=== PATIENT | female | born 1950 | race Caucasian/White ===

== ENCOUNTER → 2016-09-09 | Outpatient (CLI) | payer MEDICARE, OTHER ==
[~2016-09-09] MED LIST: ATIVAN 0.50.5 MG/TAB PO; B100 COMPLEX UL1 TA1 PO; B6-FOLIC ACID1 CAP PO; CALCIUM 600/VIT1 CAP PO; CALCIUM 6001 TA1 PO; CELEBREX50 MG PO; CENTRUM SILVER1 CTB PO; CEPHALEXIN500 M1 PO; CO Q-1010 M1; CURCUMIN95% PO; DELZICOL; DELZICOL PO; DUO-KAPS1 CAP PO; ELITE MAGNESIUM1 TAB PO; EPIPEN 2-PAK1 MG/ML IM; IBRANCE100 MG PO; IMODIUM 2MG CAPS2 MG PO; IMURAN 50MG TAB50 MG PO; IPRATROPIUM BROM3 M1 IH; KENALOG DENTAL P5 GM DT; L GLUTAMINE PO; LEVAQUIN 5500 MG/TA1 PO; LEXAPRO20 MG PO; MAGNESIUM100 MG PO; MELAT3MGTAB PO; MELATONIN5 M1 SL; MELATONIN5 MG PO; MICARDIS40 MG PO; MICARDIS80 MG PO; NORCO 325 MG-51 TAB PO; PREDNISONE 5MG5 MG PO; PREDNISONE20 MG PO; PRILOSEC 20MG20 MG PO; RITE AID NATU200 MCG PO; ROXANOL 20MG20 MG/ML PO; SELENIUM200 MC5 PO; SENOKOT S 50 MG1 TAB PO; SINEQUAN 1010 MG/CAP PO; TESSALON PERLE200 MG PO; TYLENOL 325MG325 MG PO; VITAMIN D 50,1.25 MG PO; VITAMINC1000TA PO; VITAMIND3 5000 PO; VYTORIN 10 MG-21 TAB PO; XELODA500 MG PO; ZOFRAN 4MG T4 MG/TAB PO; ZOFRAN ODT4 MG PO; ZOVIRAX 200MG200 MG PO; [UNRECOGNIZED DRUG - OTHER] PO; [UNRECOGNIZED DRUG - OTHER] PO; [UNRECOGNIZED DRUG - OTHER] PO; [UNRECOGNIZED DRUG - OTHER] PO; [UNRECOGNIZED DRUG - OTHER] PO; [UNRECOGNIZED DRUG - OTHER] PO; [UNRECOGNIZED DRUG - REMARK]
== END ==
LOC: COL.RAD 09:27
DX: R18.8 Other ascites (principal); C78.7 Secondary malignant neoplasm of liver and intrahepatic bile duct

== ENCOUNTER → 2016-09-21 | Outpatient (CLI) | payer MEDICARE, OTHER ==
[~2016-09-21] VITALS: Ht 170.2 cm; Wt 71.8 kg
[2016-09-21 12:20] VITALS: BP 135/88; PULSE 80
[2016-09-21 13:37] VITALS: BP 135/81; PULSE 81
[2016-09-21 13:52] VITALS: BP 129/85; PULSE 74
== END ==
LOC: COL.RAD 11:57
DX: C50.812 Malignant neoplasm of overlapping sites of left female breast (principal); C78.7 Secondary malignant neoplasm of liver and intrahepatic bile duct; R14.0 Abdominal distension (gaseous)

== ENCOUNTER → 2016-09-29 | Outpatient (CLI) | payer MEDICARE, OTHER | LOC: COL.RAD 07:30 | DX: C50.812 Malignant neoplasm of overlapping sites of left female breast (principal); C79.31 Secondary malignant neoplasm of brain; I10 Essential (primary) hypertension; M89.9 Disorder of bone, unspecified ==

== ENCOUNTER 2016-10-02 13:27 | Emergency (ER) | payer MEDICARE, OTHER ==
[~2016-10-02] VITALS: Ht 170.2 cm; Wt 71.8 kg
[~2016-10-02 13:27] MED LIST changes: -ATIVAN 0.50.5 MG/TAB PO; -CENTRUM SILVER1 CTB PO; -DELZICOL PO; -IBRANCE100 MG PO; -IPRATROPIUM BROM3 M1 IH; -LEVAQUIN 5500 MG/TA1 PO; -ROXANOL 20MG20 MG/ML PO; -SENOKOT S 50 MG1 TAB PO; -ZOFRAN ODT4 MG PO
[2016-10-02 13:29] VITALS: TEMP 98.4
[2016-10-02 14:36] LABS: ARTERIAL BLD GAS O2 SATURATION 80.1 % (92-100); ARTERIAL BLD GAS TCO2 CT 31.4; ARTERIAL BLOOD GAS BASE EXCESS 6.4 (-2-2); ARTERIAL BLOOD GAS HCO3 30.2 meq/L (22-26); ARTERIAL BLOOD GAS PHT 7.49 C (7.35-7.45); ARTERIAL BLOOD GAS pH 7.49 (7.35-7.45); OXYHEMOGLOBIN 79.1 %
[2016-10-02 14:37] LABS: ARTERIAL BLOOD GAS PO2 45.1 mmHg (80-100); ARTERIAL BLOOD GAS PO2T 45.1 (80-100); ATS? YES
[2016-10-02 14:49] LABS: MEAN CELL VOLUME 98 fl (80.0-100.0); MEAN CORPUSCULAR HGB CONC 35 g/dl (33.0-37.0); MEAN PLATELET VOLUME 11.5 fl (7.4-10.4); PLATELET COUNT 126 K/mm3 (130-400); RED BLOOD COUNT 2.92 M/mm3 (4.10-5.30); REDCELL DISTRIBUTION WIDTH-CV 18.7 % (11.5-14.5)
[2016-10-02 15:03] LABS: ADD PATHOLOGY DIFF REVIEW NO; HEMATOCRIT 28.6 % (37.0-47.0); MEAN CORPUSCULAR HEMOGLOBIN 34 pg (27.0-31.0); WHITE BLOOD COUNT 1.8 K/mm3 (4.8-10.8)
[2016-10-02 15:08] LABS: ADJUSTED CALCIUM 13.7 mg/dL (8.4-10.2); ALBUMIN 3.1 gm/dL (3.5-5.0); BILIRUBIN,TOTAL 1.5 mg/dL (0.0-1.0); C-REACTIVE PROTEIN 6.5 mg/dL (0.0-0.9); CREATININE, serum 0.7 mg/dL (0.52-1.25); POTASSIUM 3.5 mmol/L (3.4-5.0)
[2016-10-02 15:25] LABS: BAND 12 % (0-10); METAMYELOCYTE 4 % (0-0); NEUTROPHILS 52 % (42.0-75.2); TOTAL CELLS COUNTED 100
[2016-10-02 15:27] LABS: ANISOCYTOSIS 2+; HYPOCHROMIA 1+; MICROCYTOSIS 2+; POIKILOCYTOSIS 1+; POLYCHROMASIA 2+; TEAR DROP CELLS 1+
[2016-10-02 16:30] VITALS: BP 149/98; PULSE 94
[2016-10-02 16:41] LABS: PH 5 (5-8); URINE APPEARANCE Clear; URINE BACTERIA Rare /hpf; URINE BILIRUBIN Negative (NEGATIVE); URINE BLOOD Negative (NEGATIVE); URINE COLOR Yellow; URINE GLUCOSE Negative (NEGATIVE); URINE KETONE Negative (NEGATIVE); URINE UROBILINOGEN Negative (NEGATIVE)
[2016-10-03] MEDS ORDERED: MELATONIN5 M1 SL (13:08)
[2016-10-03] MEDS ORDERED: CENTRUM SILVER1 CTB PO (13:12)
[2016-10-03] MEDS ORDERED: MAGNESIUM100 MG PO (13:13)
[2016-10-03] MEDS ORDERED: LEVAQUIN 5500 MG/TA1 PO (13:14)
[2016-10-03] MEDS ORDERED: DELZICOL PO (13:15)
[2016-10-03] MEDS ORDERED: IBRANCE100 MG PO (13:17)
[2016-10-03] MEDS ORDERED: MICARDIS80 MG PO (16:13)
== END 2016-10-02 17:06 | disposition home or self-care (01) ==
LOC: COL.ER 13:27
PROVIDERS: Family Medicine
DX: Z02.89 Encounter for other administrative examinations (principal)
CPT/HCPCS: J7030

== ENCOUNTER 2016-10-03 12:14 | Inpatient (IN) | payer MEDICARE, OTHER ==
[~2016-10-03] VITALS: Ht 170.2 cm; Wt 65.3 kg
[2016-10-03 13:03] LABS: MEAN CELL VOLUME 99 fl (80.0-100.0); MEAN CORPUSCULAR HGB CONC 35 g/dl (33.0-37.0); MEAN PLATELET VOLUME 10.9 fl (7.4-10.4); PLATELET COUNT 108 K/mm3 (130-400); RED BLOOD COUNT 2.72 M/mm3 (4.10-5.30); REDCELL DISTRIBUTION WIDTH-CV 18.5 % (11.5-14.5)
[2016-10-03 13:06] LABS: ADD PATHOLOGY DIFF REVIEW NO; HEMATOCRIT 26.9 % (37.0-47.0); HEMOGLOBIN 9.4 g/dl (12.5-16.0); MEAN CORPUSCULAR HEMOGLOBIN 35 pg (27.0-31.0); WHITE BLOOD COUNT 1.8 K/mm3 (4.8-10.8)
[2016-10-03] MEDS ORDERED: MELATONIN5 M1 SL (13:08)
[2016-10-03] MEDS ORDERED: CENTRUM SILVER1 CTB PO (13:12)
[2016-10-03] MEDS ORDERED: MAGNESIUM100 MG PO (13:13)
[2016-10-03 13:14] LABS: BAND 16 % (0-10); METAMYELOCYTE 4 % (0-0); NEUTROPHILS 56 % (42.0-75.2); TOTAL CELLS COUNTED 100
[2016-10-03] MEDS ORDERED: LEVAQUIN 5500 MG/TA1 PO (13:14)
[2016-10-03] MEDS ORDERED: DELZICOL PO (13:15)
[2016-10-03 13:17] LABS: ANISOCYTOSIS 2+; HYPOCHROMIA 1+; MICROCYTOSIS 1+; OVALOCYTES 1+; POIKILOCYTOSIS 1+; POLYCHROMASIA 1+; SCHISTOCYTES 1+
[2016-10-03] MEDS ORDERED: IBRANCE100 MG PO (13:17)
[2016-10-03 13:34] LABS: ALBUMIN 2.7 gm/dL (3.5-5.0); BILIRUBIN,TOTAL 1.1 mg/dL (0.0-1.0); CREATININE, serum 0.65 mg/dL (0.52-1.25); MAGNESIUM 1.1 mg/dL (1.6-2.3); PHOSPHOROUS 2.9 mg/dL (2.5-4.5); POTASSIUM 3.2 mmol/L (3.4-5.0); TOTAL PROTEIN 5.6 gm/dL (6.4-8.2)
[2016-10-03 13:35] LABS: ADJUSTED CALCIUM 14.9 mg/dL (8.4-10.2); CALCIUM 13.9 mg/dL (8.4-10.2)
[2016-10-03 13:54] LABS: PH 6 (5-8); SQUAMOUS EPITHELIAL None Seen /hpf; URINE APPEARANCE Clear; URINE BACTERIA None Seen /hpf; URINE BILIRUBIN Negative (NEGATIVE); URINE BLOOD Negative (NEGATIVE); URINE COLOR Yellow; URINE GLUCOSE Negative (NEGATIVE); URINE KETONE Negative (NEGATIVE); URINE RBC 0-2 /hpf; URINE UROBILINOGEN Negative (NEGATIVE); URINE WBC 0-2 /hpf
[2016-10-03 15:32] LABS: C-REACTIVE PROTEIN 4.6 mg/dL (0.0-0.9)
[2016-10-03 16:07] VITALS: BP 151/83; PULSE 88; TEMP 98.6
[2016-10-03] MEDS ORDERED: MICARDIS80 MG PO (16:13)
[2016-10-03 16:18] VITALS: BP 153/83; PULSE 88; TEMP 98.6
[2016-10-03 19:47] VITALS: BP 163/92; PULSE 94; TEMP 98.8
[2016-10-04] VITALS (7 sets, daily range): BP systolic 125–136; BP diastolic 71–99; PULSE 84–100; TEMP 97.4–99.6
[2016-10-04 07:50] LABS: MEAN CELL VOLUME 99 fl (80.0-100.0); MEAN CORPUSCULAR HGB CONC 35 g/dl (33.0-37.0); MEAN PLATELET VOLUME 10.8 fl (7.4-10.4); PLATELET COUNT 116 K/mm3 (130-400); RED BLOOD COUNT 2.78 M/mm3 (4.10-5.30); REDCELL DISTRIBUTION WIDTH-CV 18.6 % (11.5-14.5); WHITE BLOOD COUNT 2.5 K/mm3 (4.8-10.8)
[2016-10-04 08:11] LABS: ADD PATHOLOGY DIFF REVIEW NO; HEMATOCRIT 27.4 % (37.0-47.0); HEMOGLOBIN 9.5 g/dl (12.5-16.0); MEAN CORPUSCULAR HEMOGLOBIN 34 pg (27.0-31.0)
[2016-10-04 08:12] LABS: ALBUMIN 2.6 gm/dL (3.5-5.0); CALCIUM 11.9 mg/dL (8.4-10.2); CREATININE, serum 0.66 mg/dL (0.52-1.25); MAGNESIUM 1.9 mg/dL (1.6-2.3); PHOSPHOROUS 2.2 mg/dL (2.5-4.5); POTASSIUM 3.3 mmol/L (3.4-5.0); TOTAL PROTEIN 5.3 gm/dL (6.4-8.2)
[2016-10-04 08:37] LABS: THYROID STIMULATING HORMONE 1.27 uIU/mL (0.465-4.680)
[2016-10-04 08:46] LABS: BAND 16 % (0-10); METAMYELOCYTE 3 % (0-0); MYELOCYTE 1 % (0-0); NEUTROPHILS 49 % (42.0-75.2); TOTAL CELLS COUNTED 100
[2016-10-05 00:43] VITALS: BP 132/69; PULSE 95; TEMP 98.8
[2016-10-05 04:09] VITALS: BP 127/77; PULSE 105; TEMP 98.6
[2016-10-05 07:08] LABS: MEAN CELL VOLUME 100 fl (80.0-100.0); MEAN CORPUSCULAR HGB CONC 34 g/dl (33.0-37.0); MEAN PLATELET VOLUME 11.1 fl (7.4-10.4); PLATELET COUNT 100 K/mm3 (130-400); RED BLOOD COUNT 2.46 M/mm3 (4.10-5.30); REDCELL DISTRIBUTION WIDTH-CV 19.1 % (11.5-14.5); WHITE BLOOD COUNT 2.2 K/mm3 (4.8-10.8)
[2016-10-05 07:26] LABS: CALCIUM 10.4 mg/dL (8.4-10.2); CREATININE, serum 0.64 mg/dL (0.52-1.25); POTASSIUM 3.2 mmol/L (3.4-5.0)
[2016-10-05 07:56] LABS: HEMATOCRIT 24.7 % (37.0-47.0); HEMOGLOBIN 8.5 g/dl (12.5-16.0); MEAN CORPUSCULAR HEMOGLOBIN 35 pg (27.0-31.0)
[2016-10-05 09:00] VITALS: BP 134/83; PULSE 94; TEMP 99.1
[2016-10-05 12:01] VITALS: BP 132/76; PULSE 110
[2016-10-05 12:15] VITALS: TEMP 99.8
[2016-10-05 13:16] LABS: ADD PATHOLOGY DIFF REVIEW NO
[2016-10-05 13:18] LABS: BAND 16 % (0-10); EOSINOPHIL 1 % (0-4); METAMYELOCYTE 1 % (0-0); NEUTROPHILS 52 % (42.0-75.2); PLATELET ESTIMATE DECREASED (NORMAL); TOTAL CELLS COUNTED 100
[2016-10-05] MEDS ORDERED: IPRATROPIUM BROM3 M1 IH (13:18)
[2016-10-05 13:19] LABS: ANISOCYTOSIS 3+; POLYCHROMASIA 1+
[2016-10-05 13:22] LABS: HYPOCHROMIA 1+; OVALOCYTES 1+; POIKILOCYTOSIS 1+
[2016-10-05] MEDS ORDERED: ROXANOL 20MG20 MG/ML PO (13:23)
[2016-10-05] MEDS ORDERED: SENOKOT S 50 MG1 TAB PO (13:29)
[2016-10-05] MEDS ORDERED: ZOFRAN ODT4 MG PO (13:29)
[2016-10-05] MEDS ORDERED: ATIVAN 0.50.5 MG/TAB PO (13:29)
[2016-10-05 14:17] VITALS: BP 132/76; PULSE 110; TEMP 99.8
== END 2016-10-05 16:00 | disposition hospice, inpatient (51) | DRG 871 ==
LOC: COL.ER 12:14 → MEDICAL 14:28
PROVIDERS: Family Medicine; Internal Medicine
DX: A41.9 Sepsis, unspecified organism (principal); J18.9 Pneumonia, unspecified organism; J96.01 Acute respiratory failure with hypoxia; C78.7 Secondary malignant neoplasm of liver and intrahepatic bile duct; C79.31 Secondary malignant neoplasm of brain; E87.1 Hypo-osmolality and hyponatremia; E44.0 Moderate protein-calorie malnutrition; E83.52 Hypercalcemia; Z51.5 Encounter for palliative care; C50.919 Malignant neoplasm of unspecified site of unspecified female breast; Z17.0 Estrogen receptor positive status [ER+]; Z66 Do not resuscitate; I10 Essential (primary) hypertension; E86.1 Hypovolemia; E83.42 Hypomagnesemia; D64.81 Anemia due to antineoplastic chemotherapy; Z68.22 Body mass index [BMI] 22.0-22.9, adult
CPT/HCPCS: 99223-AI; 99233-AI; 99239; J0456; J0696; J1650; J2430; J3475; J3480; J7030; J7040; J7050